=== PATIENT | female | born 1955 | race Caucasian/White ===

== ENCOUNTER → 2019-08-02 07:41 | Outpatient (CLI) | payer OTHER, SELFPAY ==
--- NOTE | 2019-08-02 | DI.MRI.S_ITS ---
PROCEDURE: MR LUMBAR SPINE WO CON INDICATIONS: Radiculopathy, lumbar region TECHNIQUE: Noncontrast sagittal T1 spin echo and T2 fast echo, coronal T2, sagittal STIR, axial T1 and T2 fast spin echo through the lumbar spine. COMPARISON: [facility], MR, MR LUMBAR SPINE WO CON, 05/27/2016, 9:45. [facility] [place], CR, XR LUMBAR SPINE FLEXION EXTENSION, 07/17/2019, 9:44. FINDINGS: Image quality: Excellent. Alignment and Curvature: 5 lumbar type vertebral bodies are present by plain film. There is severe leftward curvature of the midlumbar spine. Loss of normal lumbar lordosis is present. Mild kyphosis at T12-L2 is present. There is mild grade 1 retrolisthesis of L1 on L2 and L2 on L3. Mild grade 1 anterolisthesis of L5 on S1. Bone Marrow: Marrow is of normal overall signal. No acute vertebral body compression fractures. Moderate reactive signal within the endplates adjacent to the E. T12-L1, L1-L2, L2-L3, and L3-4 intervertebral discs. Mild reactive signal within the endplates adjacent to the L4-L5 and L5-S1 intervertebral discs. Spinal Cord: Conus medullaris terminates at the mid L1 level. Visualized cord demonstrates normal signal and size. Paraspinous Soft Tissues: No paravertebral masses. T12-L1: Moderate disc height loss and desiccation. Moderate diffuse disc bulge with superimposed left paracentral protrusion. Mild facet and ligament flavum hypertrophy. Mild epidural lipomatosis. Increased, mild canal stenosis. No change in mild left foraminal stenosis. No right foraminal stenosis. L1-L2: Severe disc height loss and desiccation. Mild diffuse disc bulge with superimposed broad-based left paracentral protrusion. Mild facet and ligamentum flavum hypertrophy. Mild epidural lipomatosis. There is increased, severe canal stenosis. There is compression of the left L2 nerve root within the lateral recess. There is moderate left foraminal stenosis. No right foraminal stenosis. L2-L3: Moderate disc height loss and desiccation. Moderate diffuse disc bulge/osteophyte. Mild facet and ligamentum flavum hypertrophy. Mild epidural lipomatosis. There is increased, moderate canal stenosis. Mild left and moderate right foraminal stenoses are unchanged. L3-L4: Moderate disc height loss and desiccation. Mild diffuse disc bulge with superimposed right far lateral protrusion/osteophyte. Moderate right greater than left facet and uncovertebral hypertrophy. Mild epidural lipomatosis. There is decreased, moderate canal stenosis. No left foraminal stenosis. Increased, severe right foraminal stenosis with right L3 nerve root compression. L4-L5: Mild disc height loss. Moderate is desiccation. Moderate diffuse disc bulge. Moderate facet and ligamentum flavum hypertrophy bilaterally. Moderate canal stenosis. Mild bilateral foraminal stenosis. No change. L5-S1: Mild disc height loss. Moderate disc desiccation. Mild diffuse disc bulge. Moderate facet hypertrophy bilaterally. There is increased, moderate canal stenosis. There is no change in mild bilateral foraminal stenosis. IMPRESSION: 1. Multilevel degenerative disc and facet disease, as well as ligamentum flavum hypertrophy and epidural lipomatosis. 2. Severe leftward curvature of the lumbar spine. 3. Multilevel canal stenoses, worst at L1-L2, where there is severe canal stenosis. Moderate canal stenoses at L2-L3, L3-4, L4-L5, and L5-S1 are present. 4. Multilevel foraminal stenoses, worst on the right at L3-L4 were there is associated L3 nerve root compression. Recommend correlation with clinical symptoms to ascertain relevance of this finding. Dictated by: Jared Sal M.D. on 08/02/2019 at 9:37 Approved by: Jared Sal M.D. on 08/02/2019 at 9:50
== END ==
PROVIDERS: Family Provider Family Medicine Geriatric Medicine; PCP Family Medicine Geriatric Medicine; Visit Provider Orthopaedic Surgery
DX: M51.16 Intervertebral disc disorders with radiculopathy, lumbar region (principal); M51.17 Intervertebral disc disorders with radiculopathy, lumbosacral region; M48.061 Spinal stenosis, lumbar region without neurogenic claudication; M48.07 Spinal stenosis, lumbosacral region; E88.2 Lipomatosis, not elsewhere classified
CPT/HCPCS: 72148